=== PATIENT | male | born 1940 | race Caucasian/White ===

== ENCOUNTER 2017-09-29 13:13 | Outpatient (CLI) | payer MEDICARE, OTHER ==
--- NOTE | 2017-09-29 14:14 | RAD ---
TWO VIEWS OF THE CHEST: HISTORY: Dyspnea. COMPARISON: 12/02/2016 FINDINGS: Two views of the chest show a normal sized cardiomediastinal silhouette. Increased interstitial lung markings are present. Opacity is seen in the right costophrenic angle, which may represent atelecta sis or an infiltrate. IMPRESSION: Right basilar atelectasis versus infiltrate. POS: [facility]
== END 2017-09-29 13:14 | disposition home or self-care (01) ==
LOC: RAD 13:13
PROVIDERS: ATTEND Internal Medicine Pulmonary Disease
DX: R06.00 Dyspnea, unspecified (principal)
CPT/HCPCS: 71046

== ENCOUNTER 2018-06-05 08:45 | Inpatient (IN) | payer MEDICARE ==
[2018-06-05] MEDS ORDERED: Morphine 4 MG/ML VIAL ONE ×2 (09:56→17:29)
[2018-06-05] MEDS ORDERED: Ondansetron HCl/PF 4 MG/2 ML Vial ONE (09:57)
--- NOTE | 2018-06-05 09:59 | RAD ---
RADIOGRAPH PELVIS 1 VIEW: Date: 06/05/18 Time: 0918 hours HISTORY: 77-year-old male status post fall with right hip pain. FINDINGS: There is a linear lucency at the right femoral neck suspicious for a nondisplaced fracture. The pelvi c ring is intact. IMPRESSION: Acute, traumatic, nondisplaced right femoral neck fracture. POS: [facility]
--- NOTE | 2018-06-05 10:00 | RAD ---
TWO VIEW RIGHT HIP: INDICATION: Posttraumatic pain. FINDINGS: There is a subtle curvilinear lucency of the base of the right femoral head in a subcapital distribut ion. The femoral head remains seated within the acetabulum. Surgical sutures are seen at the pelvis . IMPRESSION: Subcapital proximal right femoral fracture without significant displacement. POS: [facility]
--- NOTE | 2018-06-05 10:12 | RAD ---
PORTABLE CHEST 1 VIEW: Date: 06/05/18 Time: 0947 hours HISTORY: Preoperative evaluation, right hip fracture. FINDINGS: Comparison made with exam dated 09/29/17. The heart size is enlarged. Aorta is tortuous. The lungs are well expanded, without focal areas of co nsolidation, pneumothorax, jennie pulmonary edema, or pleural effusions. Chronic changes are again see n. IMPRESSION: No acute process. POS: [facility]
[2018-06-05 10:39] LABS: #Eosinphils 0.2 thou/uL (0.0-0.7); #Lymphocytes 1.4 thou/uL (1.20-3.40); #Monocytes 0.4 thou/uL (0.11-0.59); #Neutrophils 5.5 thou/uL (1.40-6.50); %Basophils 0.1 % (0.0-1.0); %Eosinophils 3.1 % (0.0-10.0); %Monocytes 5.1 % (0.0-10.0); %Neutrophils 72.7 % (42.0-75.0); Hemoglobin 14.3 g/dL (14.0-18.0); Mean Corpuscular HGB CONC 32.3 g/dL (32.0-36.0); Mean Corpuscular Hemoglobin 27.6 pg (27.0-31.0); Mean Corpuscular Volume 85.6 fL (78.0-98.0); Mean Platelet Volume 7.2 fL (7.4-10.4); Platelet Count 188 thou/uL (130-400); RBC Distribution Width 13.9 % (11.5-14.5); Red Blood Cell (RBC) Count 5.17 mill/uL (4.70-6.10); White Blood Cell (WBC) Count 7.5 thou/uL (4.8-10.8)
[2018-06-05 10:46] LABS: INR-International Normal Ratio 0.9; PTT 24.3 SEC (22.9-36.1); Prothrombin Time 12.1 SEC (12.0-14.7)
[2018-06-05] MEDS ORDERED: Amlodipine 5 MG TAB ONE (10:53)
[2018-06-05] MEDS ORDERED: Dextrose 50% Abboject 50 ML SYRINGE SLOW IVP PRN (10:56)
[2018-06-05] MEDS ORDERED: Dextrose 5% in Water 1,000 ML IV PRN (10:56)
[2018-06-05] MEDS ORDERED: Ondansetron HCl/PF 4 MG/2 ML Vial IVP PRN (10:56)
[2018-06-05] MEDS ORDERED: hydrALAZINE 20 MG/ML VIAL SLOW IVP PRN (10:56)
[2018-06-05] MEDS ORDERED: CEFAZOLIN/Water 2 GM/20 ML SYRINGE SLOW IVP SCH (11:00)
[2018-06-05] MEDS ORDERED: traMADol HCl 50 MG TAB PO PRN (11:03)
[2018-06-05] MEDS ORDERED: HYDROcodone/Acetaminophen 10/325 mg Tablet PO PRN (11:03)
[2018-06-05] MEDS ORDERED: Albuterol Sulfate 2.5 mg/3 ml Neb NEB PRN (11:05)
[2018-06-05 11:07] LABS: ALT (SGPT) 10 U/L (8-55); AST (SGOT) 24 U/L (5-34); Albumin 4.5 g/dL (3.4-4.8); Alkaline Phosphatase 86 U/L (40-150); Anion Gap 13 mmol/L (10-20); BUN (Urea Nitrogen) 23 mg/dL (8.4-25.7); Bilirubin, Total 0.6 mg/dL (0.2-1.2); Calc. Creatinine Clearance 0 mL/min (70-130); Calcium 9.7 mg/dL (7.8-10.44); Carbon Dioxide 28 mmol/L (23-31); Chloride 100 mmol/L (98-107); Estimated GFR-MDRD 63; Globulin 4.1 g/dL (2.4-3.5); Glucose 92 mg/dL (83-110); Potassium 4.7 mmol/L (3.5-5.1); Protein, Total 8.6 g/dL (5.8-8.1); Sodium 136 mmol/L (136-145)
[2018-06-05 11:17] LABS: Bilirubin Negative (Negative); Blood, Urine Small (Negative); Clarity CLEAR (Clear); Glucose, Urine (Dipstick) Negative (Negative); Leukocyte Small (Negative); Nitrite Negative (Negative); Protein, Urine (Dipstick) 100 mg/dL (Neg-Trace); Specific Gravity, Urine 1.008 (1.002-1.036); Urobilinogen 0.2 mg/dL (0.2-1.0); pH, Urine 7.5 (5.0-9.0)
[2018-06-05 11:20] LABS: Bacteria/HPF None Seen HPF (None Seen); Hyaline Casts/LPF 0-3 HYALINE CAST LPF (0-3 Hyaline); RBC/HPF 0-3 HPF (0-3); Squamous Epithelial None Seen HPF (0-3); WBC/HPF 21-50 HPF (0-3)
--- NOTE | 2018-06-05 12:19 | HP ---
DATE OF SERVICE: 06/05/2018. Referred by Dr. Herrera in the emergency department. TRAUMA ATTENDING: Dr. Valerio Galvez. CONSULTING ORTHOPEDIST: Dr. Kurtz. PRIMARY CARE PHYSICIAN: Dr. Abarca. ACCOUNT DEVELOPMENT SPECIALIST: Dr. Gómez. REASON FOR ADMISSION: Right hip fracture. HISTORY OF PRESENT ILLNESS: Mr. Sullivan is a 77-year-old male who lives at home with his son with past medical history of COPD, not requiring home oxygen, colon cancer status post resection and reana stomosis, hypertension who presented to the emergency department today with EMS with a chief complain t of right hip pain status post fall. The patient states that he tripped over shoes in the living ro om falling on his right side. No loss of consciousness. No other pain besides the right hip. No na usea, no vomiting, no chest pain, no shortness of air. He has full sensation in the leg. X-rays in the emergency department demonstrated a right subcapital femoral neck fracture, nondisplaced. Dr. Asim matthews with Orthopedics was consulted and is planning for operative intervention today. Last oral i ntake was this morning and only of coffee. The patient is noted to be hypertensive in the emergency department and states that he is having urinary hesitancy for which he normally self cath at home for . He has not taken any of his home medications. The patient has no other complaints. The patient was seen in the emergency department along with Dr. Galvez and patient's son at the [facility]. I have coordinate care with the emergency department nurses. I have asked for a Hand catheter t o be placed and to give 10 mg of amlodipine and 20 mg of lisinopril now for blood pressure management . REVIEW OF SYSTEMS: Pertinent positive and negative per HPI, otherwise regarded is negative. PAST MEDICAL HISTORY: 1. Colon cancer, status post resection. 2. Chronic obstructive pulmonary disease. 3. Hypertension. 4. Urinary hesitancy. PAST SURGICAL HISTORY: Surgical resection or polypectomy 12 years ago and then resection of colon ca ncer [address] Hicks with reanastomosis. MEDICATIONS: Please see the med rec once it is completed. ALLERGIES: No known drug allergies. FAMILY HISTORY: Mother with hypertension, but parents both of old age. SOCIAL HISTORY: The patient is a former smoker, stopped 23 years ago, former daily alcohol consumpti on, never withdraws and he has stopped drinking alcohol several years ago. Denies any drug use. 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 PHYSICAL EXAMINATION: VITAL SIGNS: Blood pressure is 214/125, heart rate is 80, respiratory rate is 18, temperature is 98. 2. He is 93% on room air. GENERAL: A 77-year-old male lying in bed, trying to urinate, in no acute distress. HEENT: Normocephalic, atraumatic. Trachea is midline. NECK: No JVD is appreciated. Mucous membranes are moist. RESPIRATORY: Equal rise and fall. Bilateral breath sounds. Rhonchi noted throughout with trace exp iratory wheezes, but moves air in all lung sanz. No retractions or prolonged expiratory phase appr eciated and no jennie respiratory distress. CARDIOVASCULAR: Regular rate and rhythm. No murmurs are appreciated. Strong pulses in 4 extremitie s and no edema. ABDOMEN: Soft, slightly tender in suprapubic area only. No masses, no guarding, no rigidity or mauricio toneal signs. MUSCULOSKELETAL: Pain to the right hip. He does have sensation distally with positive CMS at the di stal right leg, otherwise, no abnormalities. SKIN: Omro, warm and dry. NEUROLOGIC: Alert and oriented to person, place, time, and event. PSYCHIATRIC: Normal mood and affect. LABORATORY DATA AND X-RAY FINDINGS: Shows an INR of 0.9 and PTT of 24.3. White blood cell 7.5, plat elets are 188, hemoglobin and hematocrit are 14.3 and 44.3 respectively. Chemistry is still pending. Type and screen is pending. One view chest x-ray shows large lung sanz and no acute process. A hip x-ray shows a subcapital right femoral neck fracture, it is nondisplaced. ASSESSMENT: 1. Right hip fracture. 2. Acute traumatic pain. 3. Hypertension, uncontrolled. 4. Urinary retention. 5. History of chronic obstructive pulmonary disease without acute exacerbation. PLAN: 1. Admit to the surgery diallo. 2. Plan for operative procedure today. 3. To control blood pressure, I have ordered amlodipine 10 mg and lisinopril 20 mg in the emergency department. 4. Place the Hand catheter now, may help with blood pressure. 5. Pain control as needed. We will attempt oral medications as much as possible. 6. Albuterol and Atrovent, DuoNeb q.4 hours while awake. 5. Budesonide 0.5 mg twice daily. 6. Start Flomax for urinary retention. 7. Monitor blood pressure and continue p.r.n. as needed. 8. Diet will be n.p.o. except for medications until after surgery. 9. The patient is a full code. 10. Prophylaxis. Famotidine, sequential compression devices and we will start b.i.d. aspirin tomorr ow. 11. Access lines: Hand catheter requested now, peripheral IVs. 21. Activity: Bed rest until after surgery. PT, OT orders have been placed. DISPOSITION: To a surgical diallo. I have coordinated care with Dr. Kurtz at the bedside, the emergency department physician, the ER staff and Dr. Galvez.
[2018-06-05] MEDS ORDERED: Morphine 10 MG/ML VIAL ONE (12:48)
[2018-06-05] MEDS ORDERED: Lidocaine 2% Jelly 5 ML TUBE ONE (13:08)
--- NOTE | 2018-06-05 13:18 | PDOC.EVN ---
Event Note - Event Note Event Note: Unable to pass pickett, reported initially regular in with yellow urine, then no output, noted blood clot. ER MD advised to remove. Unable to pass other catheter per RN's with multiple attempts. Now traumatic with blood from meatus. ER MD also attempted. BP remains elevated. Have paged Urology and will consult. I have also discussed with ortho, no surgery today posted for tomorrow.
--- NOTE | 2018-06-05 15:10 | CON ---
DATE OF CONSULTATION: 06/05/2018 CHIEF COMPLAINT: Right hip pain. HISTORY OF PRESENT ILLNESS: Juan was getting up this morning when he lost his balance. He fell on the right side. He injured his hip. He was unable to bear weight. His family helped him up to a c hair. He was taken to the emergency department where x-rays were obtained. These demonstrated nondi splaced femoral neck fracture. Orthopedics has been consulted as well as the General Surgery Trauma Service. He is currently resting comfortably. He is having difficulty with urination. He uses cath eters at home. PAST MEDICAL HISTORY: Hypertension. The patient has had no previous fractures. He has had a histor y of colon cancer as well. He also has emphysema. He does not use home oxygen. PAST SURGICAL HISTORY: The patient has had previous colectomy and history of colostomy. Otherwise, negative. SOCIAL HISTORY: The patient denies active alcohol or drug use. He has a history of tobacco use. REVIEW OF SYSTEMS: Positive for right hip pain, otherwise negative 10-point review of systems. FAMILY MEDICAL HISTORY: Noncontributory. PHYSICAL EXAMINATION: VITAL SIGNS: Stable. GENERAL: The patient is hypertensive since arrival. He is on nasal cannula oxygen. Afebrile. GENERAL: He is sitting upright, in no apparent distress. RESPIRATORY: Breathing comfortably, but again he is on oxygen. ABDOMEN: Soft, nontender. MUSCULOSKELETAL: The patient's right leg has intact flexion and extension of the ankle. He is able to wiggle the toes. Two second capillary refill. Palpable dorsalis pedis pulse. He reports normal sensation in the foot and ankle. Normal posture of the legs. No significant shortening. He does duckworth ve pain with hip motion. IMAGES: X-rays of the pelvis and right hip demonstrate a nondisplaced femoral neck fracture which is acute. IMPRESSION: Right femoral neck fracture, nondisplaced in an elderly male. PLAN: At this point, the patient will need to go to the operating room for percutaneous screw fixati on of his femoral neck fracture. Goal of surgery is to promote early mobilization and prevent compli cations of prolonged bed rest. I have reviewed surgical options which do include percutaneous screw fixation versus hemiarthroplasty. We have elected to proceed with more minimal approach which would be percutaneous screw fixation. He will have preoperative medical optimization including control of his high blood pressure. He will be at elevated risk of pneumonia and pulmonary complications given his emphysema. He will have preoperative antibiotics and DVT prophylaxis. He should remain n.p.o.
[2018-06-05] MEDS: Budesonide 0.5 MG/2 ML NEB INH SCH (19:16)
[2018-06-05] MEDS: Ibuprofen 600 MG TAB PO SCH ×2 (20:13→21:22)
[2018-06-05] MEDS: Acetaminophen 500 MG TAB PO SCH ×2 (20:13→21:21)
[2018-06-05] MEDS: Ferrous Sulfate 325 MG TAB PO SCH (20:14)
[2018-06-05] MEDS: traMADol HCl 50 MG TAB PO SCH ×2 (20:14→21:22)
[2018-06-05] MEDS: Famotidine 20 MG TAB PO SCH (21:21)
[2018-06-05] MEDS: Lisinopril 20 MG TAB PO SCH (21:21)
[2018-06-06] MEDS ORDERED: Aspirin 81 mg Enteric Coated Tablet PO SCH (00:01)
--- NOTE | 2018-06-06 01:07 | CON ---
DATE OF CONSULTATION: 06/05/2018 Consultation was requested for inability to place catheter. HISTORY OF PRESENT ILLNESS: Patient is a 77-year-old male who is actually followed by my partner, Dr. Kat, for urinary retention after his colectomy in 2016 for colon cancer who has been performing minimal voiding and mainly self cathing. Last time he cathed himself was this morning. Unfortunately, he was being admitted for falling and breaking his hip and is planning to have surgery tomorrow. The nurses were attempting to put a catheter in and they were unable to do so and I was consulted. This previous admission, the patient self-cathed without difficulty this morning , so presumably this is a false passage. He did have significant urgency and fullness and pressure to void. He did not previously have hematuria or recent infection. He has no history of stones. PAST MEDICAL HISTORY: Significant for colon cancer, hypertension, COPD, BPH, questionable. PAST SURGICAL HISTORY: Includes colectomy in 2016 and he had a prior polyp removed before that. MEDICATIONS: Amlodipine 10, lisinopril 20 mg b.i.d., albuterol, hydrochlorothiazide, Advair, colestipol and Flomax which he is taking once a day. ALLERGIES: None. SOCIAL HISTORY: He has up to [id number] history as he has smoked up to 3 packs a day for 40 years, stopped in 1994. He has a former alcohol abuse but has not used in many years and he denies any drug usage. REVIEW OF SYSTEMS: Reveals he has had a colonoscopy since the surgery. He has no chest pain, no shortness of breath, no coughing. No nausea or vomiting. No fever, chills, or diarrhea. FAMILY HISTORY: Mom at 82. Dad in his 80s and they both of old age without any concern for cancer. PHYSICAL EXAMINATION: GENERAL: He is mainly comfortable, although does have some discomfort related to urgency with inability to void. CARDIOVASCULAR: Regular rate and rhythm. No murmurs, gallops or rubs. CHEST: Lungs clear to auscultation bilaterally. ABDOMEN: Soft, nondistended, but urgency with palpation in the suprapubic area. EXTREMITIES: No lower extremity edema. GENITOURINARY: Testes were descended bilaterally without masses. Phallus was uncircumcised and initially with paraphimosis from the prior attempts, which I reduced although this should be carefully watched and monitored so it does not happen again. Given his history, I did not want to try to pass a catheter as clearly there was a false passage at this point. LABORATORY DATA: A normal CBC, BUN and creatinine are 23 and 1.13. Urinalysis from today showed 21-50 wbc's, 0-3 rbc's, no bacteria and no skin cells. The most recent culture that was positive showed strep pyogenes and in April and November of this year, he had positive cultures, keeping in mind that he self-caths , though he ultimately can have colonization and only symptomatic infections should be treated and/or when there is concern for significant intervention like a hip repair. PROCEDURE: Flexible cystoscopy in the ER. The patient was prepped and draped and using a 18-Gabonese cystoscope, the urethra was traversed. Trauma was noted before/at the sphincter. I was able to identify the sphincter, and the trauma was a bit to the right and below this level. The prostate was wide open and there was no trouble getting the flexible cystoscope beyond the sphincter itself and into the bladder. At this time, a wire was left in place. The cystoscope was removed leaving the wire. Then a Councill catheter 18 Gabonese was placed over the wire and secured appropriately. It was draining pink tinged urine. Patient tolerated procedure well. 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 He normally self-caths, who now had urethral trauma from the catheter being blown up in the urethra, so he will need the indwelling catheter for 5-7 days before trying to take it out and allow him to resume self-voiding catheterization. On review of this with Dr. Kta who can follow up with him upon discharge. FELIX
[2018-06-06] MEDS: Acetaminophen 500 MG TAB PO SCH ×4 (03:55→17:49)
[2018-06-06] MEDS: traMADol HCl 50 MG TAB PO SCH ×4 (03:55→17:50)
[2018-06-06 06:12] LABS: #Eosinphils 0.3 thou/uL (0.0-0.7); #Lymphocytes 0.9 thou/uL (1.20-3.40); #Monocytes 0.3 thou/uL (0.11-0.59); #Neutrophils 6.5 thou/uL (1.40-6.50); %Basophils 0.5 % (0.0-1.0); %Eosinophils 4.2 % (0.0-10.0); %Lymphocytes 11.7 % (21.0-51.0); %Monocytes 3.2 % (0.0-10.0); %Neutrophils 80.5 % (42.0-75.0); Hemoglobin 14.2 g/dL (14.0-18.0); Mean Corpuscular HGB CONC 30.2 g/dL (32.0-36.0); Mean Corpuscular Hemoglobin 26.5 pg (27.0-31.0); Mean Corpuscular Volume 87.6 fL (78.0-98.0); Mean Platelet Volume 8.1 fL (7.4-10.4); Platelet Count 153 thou/uL (130-400); RBC Distribution Width 14.1 % (11.5-14.5); Red Blood Cell (RBC) Count 5.38 mill/uL (4.70-6.10)
[2018-06-06] MEDS: Budesonide 0.5 MG/2 ML NEB INH SCH ×2 (06:42→19:00)
[2018-06-06] MEDS: Ibuprofen 600 MG TAB PO SCH ×3 (06:51→22:14)
[2018-06-06 08:07] VITALS: BMI 20.2
[2018-06-06] MEDS: Tamsulosin HCl 0.4 MG CAP PO SCH (09:02)
[2018-06-06] MEDS: Ferrous Sulfate 325 MG TAB PO SCH ×3 (09:03→17:49)
[2018-06-06] MEDS: Famotidine 20 MG TAB PO SCH ×2 (09:03→22:14)
[2018-06-06] MEDS: Amlodipine 10 MG TAB PO SCH (09:04)
[2018-06-06] MEDS: Lisinopril 20 MG TAB PO SCH ×2 (09:04→22:15)
[2018-06-06] MEDS: Aspirin 81 mg Enteric Coated Tablet PO SCH ×2 (09:04→22:15)
[2018-06-06] MEDS ORDERED: CEFAZOLIN/Water 2 GM/20 ML SYRINGE ONE (10:58)
--- NOTE | 2018-06-06 12:51 | PRG ---
DATE OF SERVICE: 06/06/2018 SUBJECTIVE: The patient did well overnight. He has no complaints. His abdomen feels much better and he now is draining well. PHYSICAL EXAMINATION: VITAL SIGNS: His vitals have been stable. GENITOURINARY: He has had excellent urine output. His phallus was uncircumcised with the foreskin reduced. There is mild blood around the catheter, which is to be expected. There is yellow urine draining in the Hand. ASSESSMENT: We have a 77-year-old male status post urethral trauma from Hand balloon being blown up in the urethra, now with a catheter indwelling draining fine. This should stay in for at least 5-7 days to allow the urethral trauma to heal and I suspect he will be able to go home before it is appropriate to remove it in which case he could remove it as an outpatient since he is familiar with this and then resume CIC. I will review his case with Dr. Kat , who ultimately will decide his definitive followup but for now, keep the indwelling catheter secured at all times. FELIX
[2018-06-06] MEDS ORDERED: Fentanyl 100 MCG/2 ML VIAL ONE (14:39)
[2018-06-06] MEDS ORDERED: Promethazine HCl 25 MG/ML VIAL SLOW IVP PRN (15:41)
[2018-06-06] MEDS ORDERED: Promethazine HCl 25 MG/ML VIAL IM PRN (15:41)
[2018-06-06] MEDS ORDERED: Ondansetron HCl/PF 4 MG/2 ML Vial IVP PRN (15:41)
--- NOTE | 2018-06-06 18:56 | RAD ---
RADIOGRAPHS OF RIGHT HIP 06/06/18 COMPARISON: 06/05/18 HISTORY: ORIF. FINDINGS: Previously noted fracture of the femoral neck is treated with three cannulated lag screws. There is a natomic alignment of the fracture site. IMPRESSION: ORIF as above. POS: [facility]
--- NOTE | 2018-06-06 19:59 | OP ---
DATE OF OPERATION: 06/06/2018 OPERATION: Right femoral neck fracture percutaneous screw fixation. PREOPERATIVE DIAGNOSIS: Right femoral neck fracture. POSTOPERATIVE DIAGNOSIS: Right femoral neck fracture. COMPLICATIONS: None. ESTIMATED BLOOD LOSS: 50 mL SURGEON: Jordin Kurtz M.D. IMPLANTS: Synthes 7.3 mm cannulated screws x3. INDICATIONS: Mr. Sullivan is a 77-year-old male who fell. He fractured his right femoral neck. Th is was nondisplaced. He was indicated for percutaneous screw fixation to stabilize the femoral neck fracture and hopefully promote healing. Risks have been reviewed in detail. He has elected to proce ed with the operation. DESCRIPTION OF PROCEDURE: Mr. Sullivan was identified in the preoperative holding area. His correc t extremity was marked. He was carried to the operating room. He was positioned supine. General an esthesia was induced. A multidisciplinary timeout was performed. The right lower extremity was prep ped and draped in sterile fashion. At this point, we prepped the right lower extremity and took intraoperative x-rays. We ensured that the femoral neck fracture remained nondisplaced. We then obtained an appropriate start point for our guidewires. We made a small incision. We inserted a guidewire in the inferior aspect of the femora l head. We then inserted two additional guidewires superior to this in an inverted triangle pattern. We took images confirming hardware placement. We measured the guidewires and we overdrilled the gu idewires. Next, we placed three 7.3 mm cannulated screws traversing the fracture. At this point, we took final images. We then irrigated and closed with a 2-0 Vicryl and jessica. The patient was farhan en to the recovery room in good condition without complication.
[2018-06-06] MEDS ORDERED: cefTRIAXone\\ROCEPHIN 2 GM in Sodium Chloride 0.9% 100 ML IVPB SCH (22:00)
[2018-06-07] MEDS: traMADol HCl 50 MG TAB PO SCH ×5 (00:23→23:14)
[2018-06-07] MEDS: Acetaminophen 500 MG TAB PO SCH ×5 (00:23→23:14)
[2018-06-07 05:25] LABS: #Eosinphils 0.1 thou/uL (0.0-0.7); #Lymphocytes 0.5 thou/uL (1.20-3.40); #Monocytes 0.3 thou/uL (0.11-0.59); #Neutrophils 4.1 thou/uL (1.40-6.50); %Basophils 0.1 % (0.0-1.0); %Eosinophils 2.6 % (0.0-10.0); %Lymphocytes 10.2 % (21.0-51.0); %Monocytes 5.3 % (0.0-10.0); %Neutrophils 81.8 % (42.0-75.0); Hemoglobin 11.4 g/dL (14.0-18.0); Mean Corpuscular HGB CONC 31.2 g/dL (32.0-36.0); Mean Corpuscular Hemoglobin 26.8 pg (27.0-31.0); Mean Platelet Volume 7.8 fL (7.4-10.4); Platelet Count 122 thou/uL (130-400); RBC Distribution Width 13.8 % (11.5-14.5); Red Blood Cell (RBC) Count 4.26 mill/uL (4.70-6.10); White Blood Cell (WBC) Count 5.1 thou/uL (4.8-10.8)
[2018-06-07 05:27] LABS: Anion Gap 13 mmol/L (10-20); BUN (Urea Nitrogen) 42 mg/dL (8.4-25.7); Calc. Creatinine Clearance 29 mL/min (70-130); Calcium 8.6 mg/dL (7.8-10.44); Carbon Dioxide 24 mmol/L (23-31); Chloride 103 mmol/L (98-107); Estimated GFR-MDRD 40; Glucose 110 mg/dL (83-110); Magnesium 1.6 mg/dL (1.6-2.6); Phosphorus 4.3 mg/dL (2.3-4.7); Potassium 4.2 mmol/L (3.5-5.1); Sodium 136 mmol/L (136-145)
[2018-06-07] MEDS: Ibuprofen 600 MG TAB PO SCH ×3 (06:08→21:03)
[2018-06-07] MEDS: Budesonide 0.5 MG/2 ML NEB INH SCH ×2 (06:14→19:26)
[2018-06-07] MEDS: Amlodipine 10 MG TAB PO SCH (09:13)
[2018-06-07] MEDS: Aspirin 81 mg Enteric Coated Tablet PO SCH ×2 (09:16→21:03)
[2018-06-07] MEDS: Ferrous Sulfate 325 MG TAB PO SCH ×3 (09:16→18:02)
[2018-06-07] MEDS: Tamsulosin HCl 0.4 MG CAP PO SCH (09:16)
[2018-06-07] MEDS: Famotidine 20 MG TAB PO SCH ×2 (09:16→21:03)
[2018-06-07] MEDS: Lisinopril 20 MG TAB PO SCH ×2 (09:16→21:04)
[2018-06-07] MEDS ORDERED: Doxycycline 100 MG CAP PO SCH (12:15)
[2018-06-07] MEDS ORDERED: Lidocaine 1% PF 5 ML VIAL ONE (13:23)
[2018-06-07] MEDS ORDERED: Dexamethasone 20 MG/5 ML VIAL ONE (13:23)
[2018-06-07] MEDS ORDERED: Ondansetron HCl/PF 4 MG/2 ML Vial ONE (13:23)
[2018-06-07] MEDS ORDERED: PHENYLEPHRINE-NS 100 MCG/ML 10 ML SYRINGE ONE (13:23)
[2018-06-07] MEDS ORDERED: ePHEDrine/0.9% NaCl/PF SYRINGE 50 mg/10 ml ONE (13:23)
[2018-06-07] MEDS ORDERED: PROPOFOL 200 MG/20 ML VIAL ONE (13:23)
[2018-06-07] MEDS ORDERED: Calcium Chloride 1 GM/10 ML Abboject SYRINGE ONE (13:23)
--- NOTE | 2018-06-07 14:28 | PRG ---
DATE OF SERVICE: 06/07/2018 SUBJECTIVE: He had a surgery for his hip yesterday and has done well. He has no complaints regarding the Hand. We reviewed his urine culture, which came back positive and I will change antibiotics. Vitals have been stable with excellent urine output. The catheter is secured and draining yellow urine. LABORATORY DATA: His creatinine did elevate to 1.62 and his platelets dropped to 122,000 and the urine culture showed MRSA and 25-50K Strep organism. ASSESSMENT AND PLAN: We have [id number] male status post hip repair for fall and fracture. He had traumatic Hand placement and another catheter cystoscoped in who needs the indwelling for at least 5-7 days and has also had urine infection, for which I have switched him over to doxycycline. I expect Dr. Kat will have the catheter in for 5-7 days total and then have the patient resume CIC. I reviewed this with the patient and Dr. Kat will see him tomorrow. FELIX
[2018-06-07] MEDS: Doxycycline 100 MG CAP PO SCH (21:03)
--- NOTE | 2018-06-07 21:10 | PRG ---
DATE OF SERVICE: 06/07/2018 SUBJECTIVE: The patient is hospital day #3, postop day #1, status post fall, in which he sustained a right femoral neck fracture. The patient underwent ORIF of this fracture yesterday. He tolerated i t well. Of note, the patient had a traumatic Hand catheter placement in the Emergency Department re quiring the urologist, Dr. Schumacher, to place a Hand under cystoscopy. This Hand will stay in place for 5-7 days. It was also noted that the patient had a UTI requiring him to be started on antibiotic s. Otherwise, the patient is controlled and is tolerating a diet and has begun working with physical therapy. PHYSICAL EXAMINATION: VITAL SIGNS: Temperature is 98.2, heart rate 89, blood pressure 114/63, respirations 16, oxygen satu ration 93% on 2 liters via nasal cannula. GENERAL: The patient is resting comfortably in bed. He is awake, alert, and oriented. HEENT: Unremarkable. LUNGS: Clear to auscultation with good inspiratory and expiratory effort. HEART: Regular rate and rhythm. ABDOMEN: Soft, flat, nontender. EXTREMITIES: Neurovascularly intact x4. Postop dressing is clean, dry, and intact. LABORATORY FINDINGS: White blood cell count 5.1, hemoglobin 11.4, hematocrit 36.6, platelets 122. S odium 136, potassium 4.2, chloride 103, CO2 of 24, BUN 42, creatinine 1.65, glucose 110. There are n o radiographs to review this morning. ASSESSMENT: 1. Status post ground level fall. 2. Right proximal femur fracture, status post open reduction internal fixation of same. 3. Traumatic Hand placement requiring Hand to be placed under cystoscopy. PLAN: Plan will be to continue supportive care, physical and occupational therapy, transition all pa in meds to p.o., and resume his home medications. We will have rehab evaluate the patient for a poss ible placement. The evaluation and examination were done this morning with Dr. Galvez during rounds.
[2018-06-08] MEDS: Ibuprofen 600 MG TAB PO SCH ×3 (05:44→21:38)
[2018-06-08] MEDS: Acetaminophen 500 MG TAB PO SCH ×3 (05:44→18:35)
[2018-06-08] MEDS: traMADol HCl 50 MG TAB PO SCH ×3 (05:45→18:35)
[2018-06-08] MEDS: Budesonide 0.5 MG/2 ML NEB INH SCH ×2 (07:12→19:32)
[2018-06-08 08:27] LABS: Anion Gap 14 mmol/L (10-20); BUN (Urea Nitrogen) 47 mg/dL (8.4-25.7); Calc. Creatinine Clearance 28 mL/min (70-130); Calcium 8.5 mg/dL (7.8-10.44); Carbon Dioxide 24 mmol/L (23-31); Chloride 104 mmol/L (98-107); Estimated GFR-MDRD 39; Glucose 116 mg/dL (83-110); Magnesium 1.7 mg/dL (1.6-2.6); Phosphorus 3.4 mg/dL (2.3-4.7); Potassium 3.9 mmol/L (3.5-5.1); Sodium 138 mmol/L (136-145)
[2018-06-08] MEDS: Lisinopril 20 MG TAB PO SCH ×2 (08:51→21:38)
[2018-06-08] MEDS: Tamsulosin HCl 0.4 MG CAP PO SCH (08:51)
[2018-06-08] MEDS: Amlodipine 10 MG TAB PO SCH (08:51)
[2018-06-08] MEDS: Aspirin 81 mg Enteric Coated Tablet PO SCH ×2 (08:51→21:38)
[2018-06-08] MEDS: Famotidine 20 MG TAB PO SCH (08:51)
[2018-06-08] MEDS: Ferrous Sulfate 325 MG TAB PO SCH ×3 (08:51→18:35)
[2018-06-08] MEDS: Polyethylene Glycol 3350 17 GM Packet PO SCH (09:35)
[2018-06-08] MEDS: Ascorbic Acid 500 mg Chewable Tablet PO SCH ×2 (09:47→21:39)
[2018-06-08] MEDS: Doxycycline 100 MG CAP PO SCH ×2 (09:47→21:39)
[2018-06-08] MEDS: Sodium Chloride 0.9% 1,000 ML IV SCH (12:04)
--- NOTE | 2018-06-08 14:33 | PQF ---
CLINICAL DOCUMENTATION IMPROVEMENT CLARIFICATION FORM: ICD-10 Updated PLEASE DO AN ADDENDUM TO THE PROGRESS NOTE WITH ANY DOCUMENTATION UPDATES OR ADDITIONS AND CARRY THROUGH TO DC SUMMARY. THANK YOU. DATE: 06/08/18 ATTN: Margot LOZADA PA-C Please exercise your independent, professional judgment in responding to the clarification form. Clinical indicators are provided on the bottom of this form for your review Please check appropriate box(s): [ x ] Primary/Essential Hypertension [ ] Emergency [ ] Urgency [ ] Crisis [ ] Transient Hypertension [ ] Secondary Hypertension (please specify etiology, if known) [ ] Other diagnosis [ ] Unable to determine In addition, please specify: Present on Admission (POA): [ x ] Yes [ ] No [ ] Unable to determine For continuity of documentation, please document condition throughout progress notes and discharge summary. Thank You. CLINICAL INDICATORS - SIGNS / SYMPTOMS / LABS ER NOTE: BP 221/131 / 232/114 RISKS: URINARY RETENTION PAIN FROM FEMORAL FRACTURE (OCCASIONAL PAIN PER NURSES NOTE 06/08) TREATMENT: IV MORPHINE (ER) LISINOPRIL (ER-PRESENT) AMLODIPINE (ER-PRESENT) TRAMADOL (06/06-PRESENT) (This form is maintained as a part of the permanent medical record) 2014 [employer]. All Rights Reserved ALMA [email or web address] Office: [phone] [facility]
--- NOTE | 2018-06-08 16:07 | PRG-2 ---
DATE OF SERVICE: 06/08/2018 SUBJECTIVE: The patient is a 77-year-old gentleman, who is hospital day #4, admitted for a fall during which he sustained a right femoral neck fracture. The patient is postop day #2 status post ORIF of his femoral fracture. There were no acute events overnight. The patient states his pain is well controlled and he was able to walk approximately 300 feet with physical therapy today without any issues. The patient is tolerating his p.o. diet and there are no complaints on exam this morning. PHYSICAL EXAMINATION: VITAL SIGNS: Temperature 97.6 degrees Fahrenheit, pulse 80, respirations 18, O2 sat 97% on room air, blood pressure 147/72. GENERAL: The patient is resting comfortably, sitting up in bed. He is awake, alert, and oriented, and in no acute distress. HEENT: Unremarkable. LUNGS: Clear to auscultation bilaterally with good inspiratory and expiratory effort. CARDIOVASCULAR: Regular rate and rhythm, no murmurs. ABDOMEN: Soft, nondistended, nontender. Normal bowel sounds noted. EXTREMITIES: Neurovascularly intact x4. NEUROLOGIC: No focal deficits. LABORATORY FINDINGS: Sodium 138, potassium 3.9, chloride 104, bicarbonate 24, BUN 47, creatinine 1.70, blood glucose 116. RADIOGRAPHIC DATA: There is no new radiographic data for review. ASSESSMENT AND PLAN: 1. Status post ground-level fall. 2. Right proximal femur fracture, postoperative day #2, status post open reduction and internal fixation. 3. Traumatic Hand placement, requiring Hand to be placed under cystoscopy. 4. Urinary tract infection. 5. Acute traumatic pain. 6. Acute kidney injury. 7. History of chronic obstructive pulmonary disease. PLAN: Will continue supportive care with supplemental oxygen as needed as well as p.o. pain control. Will resume patient's home medications. Will continue having the patient work with both physical and occupational therapy. Will have a rehab evaluate the patient for possibility of an inpatient rehabilitation upon discharge. Will continue Hand catheter and antibiotics per recommendations of Urology. Will continue on a regular diet, but will start on normal saline at 75 mL an hour in an attempt to resolve the patient's acute kidney injury. Anticipate discharge within the next 1-2 days. This plan was discussed with the trauma attending, Dr. David Yoo. FELIX
[2018-06-09] MEDS: Acetaminophen 500 MG TAB PO SCH ×3 (00:29→11:58)
[2018-06-09] MEDS: traMADol HCl 50 MG TAB PO SCH ×3 (00:30→11:59)
[2018-06-09] MEDS: Sodium Chloride 0.9% 1,000 ML IV SCH (00:32)
[2018-06-09] MEDS: Ibuprofen 600 MG TAB PO SCH ×2 (05:00→14:20)
[2018-06-09 06:21] LABS: Anion Gap 13 mmol/L (10-20); BUN (Urea Nitrogen) 32 mg/dL (8.4-25.7); Calc. Creatinine Clearance 39 mL/min (70-130); Calcium 8.2 mg/dL (7.8-10.44); Carbon Dioxide 23 mmol/L (23-31); Chloride 109 mmol/L (98-107); Estimated GFR-MDRD 57; Glucose 77 mg/dL (83-110); Magnesium 1.6 mg/dL (1.6-2.6); Phosphorus 2.5 mg/dL (2.3-4.7); Potassium 3.5 mmol/L (3.5-5.1); Sodium 141 mmol/L (136-145)
[2018-06-09 06:33] LABS: Band 4 % (5-11); Eosinophils 2 % (0-10); Hemoglobin 11.1 g/dL (14.0-18.0); Lymphocytes 26 % (21-51); MDiff Complete? YES; Mean Corpuscular HGB CONC 31.6 g/dL (32.0-36.0); Mean Corpuscular Hemoglobin 27.4 pg (27.0-31.0); Mean Corpuscular Volume 86.8 fL (78.0-98.0); Mean Platelet Volume 8.1 fL (7.4-10.4); Monocytes 12 % (0-10); Neutrophil 56 % (42-75); Platelet Count 124 thou/uL (130-400); RBC Distribution Width 13.9 % (11.5-14.5); Red Blood Cell (RBC) Count 4.04 mill/uL (4.70-6.10); White Blood Cell (WBC) Count 3.6 thou/uL (4.8-10.8)
[2018-06-09] MEDS: Budesonide 0.5 MG/2 ML NEB INH SCH (07:17)
[2018-06-09] MEDS ORDERED: Famotidine 20 MG TAB PO SCH (09:00)
[2018-06-09] MEDS: Amlodipine 10 MG TAB PO SCH (09:28)
[2018-06-09] MEDS: Ascorbic Acid 500 mg Chewable Tablet PO SCH (09:28)
[2018-06-09] MEDS: Lisinopril 20 MG TAB PO SCH (09:28)
[2018-06-09] MEDS: Doxycycline 100 MG CAP PO SCH (09:28)
[2018-06-09] MEDS: Aspirin 81 mg Enteric Coated Tablet PO SCH (09:29)
[2018-06-09] MEDS: Tamsulosin HCl 0.4 MG CAP PO SCH (09:29)
[2018-06-09] MEDS: Ferrous Sulfate 325 MG TAB PO SCH ×2 (09:29→11:58)
[2018-06-09] MEDS: Polyethylene Glycol 3350 17 GM Packet PO SCH (09:30)
[2018-06-09 12:29] VITALS: BP 173/81; TEMP 97.7
--- NOTE | 2018-06-10 04:14 | DIS-2 ---
DATE OF ADMISSION: 06/05/2018 DATE OF DISCHARGE: 06/09/2018 RESIDENT: Dr. Bina Dejesus. ADMITTING ATTENDING: Dr. Valerio Galvez. DISCHARGE ATTENDING: Dr. Valerio Galvez. CONSULTATIONS: 1. Orthopedic Surgery, Dr. Jordin Kurtz. 2. Urology, Dr. Adalgisa Schumacher. PROCEDURES: 1. Pelvis x-ray significant for an acute traumatic nondisplaced right femoral neck fracture. 2. Right hip x-ray significant for a subcapital proximal right femoral fracture without significant displacement. 3. Chest x-ray which showed no acute process. 4. Right hip x-ray on 06/06/2018, significant for previously noted fracture of the femoral neck treated with three cannulated lag screws. There is anatomic alignment of the fracture site. 5. Right femoral neck fracture, percutaneous screw fixation. PRIMARY DIAGNOSIS: Right hip fracture. SECONDARY DIAGNOSES: 1. Hypertension. 2. Urinary retention. 3. Chronic obstructive pulmonary disease. 4. History of colon cancer, status post resection. DISCHARGE MEDICATIONS: 1. Fluticasone/salmeterol 1 inhaled b.i.d. 2. Hydrochlorothiazide 25 mg p.o. daily. 3. Amlodipine besylate 5 mg p.o. daily. 4. Albuterol sulfate 2.5 mg nebulized daily p.r.n. 5. Balsalazide disodium 750 mg 2 tabs p.o. t.i.d. 6. Protonix 40 mg p.o. daily. 7. Lisinopril 20 mg p.o. b.i.d. 8. Colestid 2 grams p.o. t.i.d. with meals. 9. Tamsulosin 0.4 mg p.o. daily. 10. Acetaminophen 1000 mg p.o. q.6 hours. 11. Vitamin C 500 mg p.o. b.i.d. 12. Aspirin 81 mg p.o. b.i.d. for 2 weeks. 13. Ferrous sulfate 325 mg p.o. t.i.d. with meals for 2 weeks. 14. Ibuprofen 600 mg q.8 hours. 15. MiraLax 17 grams p.o. daily for 2 weeks. 16. Tramadol hydrochloride 50 mg p.o. q.6 hours p.r.n. for pain. 17. Doxycycline 100 mg p.o. b.i.d. for 5 days. DISCONTINUED MEDICATIONS: Ferrous sulfate 325 mg p.o. p.r.n. HISTORY OF PRESENT ILLNESS AND HOSPITAL COURSE: The patient is a 77-year-old gentleman with a past medical history significant for COPD, not on home oxygen, hypertension, and urinary hesitancy who presented to the emergency department with a chief complaint of right hip pain, status post a mechanical fall at home. On presentation to the emergency department, the patient's vitals were noted to be within normal limits with the exception of a severely elevated blood pressure at 202/103 and the patient was satting only 94% on 2 liters of oxygen via nasal cannula. His GCS score on arrival was noted to be 15 and the patient reported his pain to be 6/10 in severity. While in the emergency department, the patient was given 12 mg of IV morphine, 20 of lisinopril, a DuoNeb treatment, 10 of amlodipine, and 1 liter of normal saline. He had multiple imaging studies including a pelvic, hip, and chest x-ray. The chest x-ray showed no significant findings; however, the hip and pelvis x-rays were significant for a right intertrochanteric hip fracture. Initial blood work was all within normal limits. However, a urinalysis on presentation was suspicious for a possible urinary tract infection , showing small blood, small leukocyte esterase, and 21-50 white blood cells. The trauma team was then consulted to come and evaluate the patient for admission. On evaluation by the trauma team, the patient was noted to be in no acute distress and satting 93% on room air. Care was coordinated with Dr. Kurtz with Orthopedic Surgery and the patient was kept n.p.o. and admitted to the surgical diallo with plans for an operative intervention later that day. Thus later that day, the patient was taken back to the operating room for repair of his right hip fracture. The patient tolerated the procedure well without any complications. The following day, the patient was seen and evaluated by physical therapy and did extremely well, walking an estimated 300 feet 2 times. By the date of discharge he was able to walk without assistance and was recommended to be discharged home with assistance. Of note, the patient had extensive difficulties being catheterized in the emergency department, requiring consultation of Urology, Dr. Adalgisa Schumacher. Dr. Schumacher came and evaluated the patient in the emergency department and inserted a Hand catheter with the aid of flexible cystoscopy. Dr. Schumacher continue to follow the patient for the course of his hospital stay and by day #3, recommended that the patient have the Hand kept in place for at least 5-7 days and continue a course of antibiotics for suspected urinary tract infection. He was also transitioned from rocephin to p.o. doxycycline on 06/07/[address] Schumacher and was discharged home with a 5 day course of antibiotics to complete a full 7-day course. He was instructed to follow up with his primary care provider, Dr. Toribio Kat, before the end of the week regarding his Hand catheter management. Regarding his acute kidney injury, by day 4 of his hospitalization, the patient's BUN and creatinine had risen to 47 and 1.70 from 23 and 1.3 on admission, which is above the patient's baseline. He was therefore placed on normal saline at 75 mL an hour in addition to his regular p.o. diet in order to correct his prerenal acute kidney injury. By the date of discharge, the patient 's BUN and creatinine had down trended to 32 and 1.22, so his fluids were discontinued and he was discharged with instructions to follow up with his primary care provider within 3 days of discharge. In addition, for the duration of his hospital stay, the patient required oxygen supplementation via nasal cannula on and off. It was therefore decided that upon discharge, he will be evaluated as to whether or not he qualified for home oxygen. This was done on the day of discharge and the patient did qualify and was therefore discharged with home oxygen. By the date of discharge, the patient was tolerating a p.o. diet and said his pain was well controlled with p.o. pain medications. He was evaluated and screened for qualifications for inpatient rehab, but denied this service. The patient stated he would prefer to complete outpatient rehabilitation and return home upon discharge. He was, however, given the option of contacting an inpatient rehabilitation facility should he return home and find it too difficult to complete therapy on an outpatient basis. Thus, the patient was cleared for discharge home in stable condition. DISPOSITION: Stable. DISCHARGE INSTRUCTIONS: 1. Location: Home. 2. Diet: Heart healthy, renal diet, no salt added diet. 3. Activity: As tolerated. 4. Followup: The patient was discharged to follow up with his primary care provider, Dr. Toribio Kat within 3 days of discharge. He was instructed to follow up with quality improvement analyst, Dr. Gómez last scheduled appointment upon discharge. The patient was also instructed to follow up with Orthopedic Surgery , Dr. Jordin Kurtz within 10 days of discharge. FELIX
== END 2018-06-09 17:26 | disposition home or self-care (01) | DRG 481 ==
LOC: ERS 08:45 → SDC 10:37 → SURG A 17:50
PROVIDERS: ADMIT Surgery; ATTEND Surgery
PROC: 0TJB8ZZ Inspection of Bladder, Via Natural or Artificial Opening Endoscopic (ICD-10-PCS; principal; 2018-06-05)
PROC: 0SH934Z Insertion of Internal Fixation Device into Right Hip Joint, Percutaneous Approach (ICD-10-PCS; 2018-06-06)
DX: S72.011A Unspecified intracapsular fracture of right femur, initial encounter for closed fracture (principal); N39.0 Urinary tract infection, site not specified; N17.9 Acute kidney failure, unspecified; W01.0XXA Fall on same level from slipping, tripping and stumbling without subsequent striking against object, initial encounter; Y93.9 Activity, unspecified; Y92.009 Unspecified place in unspecified non-institutional (private) residence as the place of occurrence of the external cause; J44.9 Chronic obstructive pulmonary disease, unspecified; Z85.038 Personal history of other malignant neoplasm of large intestine; I10 Essential (primary) hypertension; R39.11 Hesitancy of micturition; Z87.891 Personal history of nicotine dependence; T83.098A Other mechanical complication of other urinary catheter, initial encounter; R33.9 Retention of urine, unspecified
CPT/HCPCS: 36415; 51702; 71045; 72170; 76001; 80048; 80053; 81003; 81015; 83735; 84100; 85025; 85610; 85730; 86850; 86900; 86901; 87077; 87086; 87186; 93005; 96361; 96374; 96375; 96376; C1713; C1769; G0390; G8978-GP-CJ; G8979-GP-CI; G8987-GO-CJ; G8988-GO-CI; J0696; J1100; J2001; J2270; J2405; J2704; J3010; J7050; J7620; J7626

== ENCOUNTER 2019-08-03 16:04 | Outpatient (CLI) | payer MEDICARE ==
--- NOTE | 2019-08-03 16:30 | RAD ---
EXAM: Two views chest PROVIDED CLINICAL HISTORY: Dyspnea COMPARISON: 09/29/2017 FINDINGS: The cardiac silhouette is mildly enlarged. The pulmonary vasculature is within normal limits. Emphyse matous changes are seen in the upper lung zones bilaterally with persistent linear scarring in the left upper lung zone. Focal eventration of the right hemidiaphragm is again seen. No new area of cons olidation or pleural fluid is seen. Vascular calcifications are again seen in the thoracic and visualized abdominal aorta. Degenerative changes are again seen in the spine. There is osteopenia. IMPRESSION: 1. No acute cardiopulmonary process. 2. Mild cardiomegaly. 3. Stable chronic lung changes and evidence of COPD..
== END 2019-08-03 16:05 | disposition home or self-care (01) ==
LOC: RAD 16:04
PROVIDERS: ATTEND Internal Medicine Pulmonary Disease
DX: J44.9 Chronic obstructive pulmonary disease, unspecified (principal); I51.7 Cardiomegaly
CPT/HCPCS: 71046